=== PATIENT | female | born 1995 | race Caucasian/White ===

== ENCOUNTER 2016-10-22 07:06 | Inpatient (IN) | payer MEDICAID ==
[~2016-10-22] VITALS: Ht 157.5 cm; Wt 70.0 kg
[~2016-10-22 07:06] MED LIST: ALBU18HF INHALATION; GUAI-637 PO; PREN1TAB79 PO
[2016-10-22 07:31] VITALS: Ht 157.5 cm; Wt 70.0 kg
[2016-10-22 07:32] VITALS: BP 126/80; PULSE 75; RESP 18
[2016-10-22] MEDS ORDERED: LACTATED RINGER'S 1,000 ML IV SCH (07:51)
[2016-10-22] MEDS ORDERED: OXYTOCIN 30 UNITS/LR 500 ML IV SCH (08:00)
[2016-10-22] MEDS ORDERED: BUTORPHANOL 2 MG INJ IV PRN (08:00)
[2016-10-22] MEDS ORDERED: AMPICILLIN 2 GM/NS (PMX) 100 ML IV ONE (08:00)
[2016-10-22] MEDS ORDERED: LACTATED RINGER'S 1,000 ML IV PRN (08:00)
[2016-10-22] MEDS ORDERED: METHYLERGONOVINE 0.2 MG INJ IM PRN (08:00)
[2016-10-22] MEDS ORDERED: LIDOCAINE 1% (MPF) 30 ML INJ INJ PRN (08:00)
[2016-10-22] MEDS ORDERED: MISOPROSTOL 200 MCG TAB PR PRN (08:00)
[2016-10-22] MEDS ORDERED: OXYTOCIN 30 UNITS/LR 500 ML IV PRN (08:00)
[2016-10-22] MEDS ORDERED: CARBOPROST 250 MCG INJ IM PRN (08:00)
[2016-10-22] MEDS ORDERED: IBUPROFEN 600 MG TAB PO PRN (08:00)
[2016-10-22 08:37] LABS: BASOPHIL # 0.1 10^3/ul (0.0-0.1); BASOPHILS % 0.6 % (0.0-2.0); HEMATOCRIT 37.4 % (37.0-47.0); HEMOGLOBIN 12.6 g/dl (12.0-16.0); LYMPHOCYTES # 1.6 10^3/ul (0.8-2.9); LYMPHOCYTES % 12.5 % (15.0-51.0); MEAN CORPUSCULAR HEMOGLOBIN 29.2 pg (29.0-33.0); MEAN CORPUSCULAR HGB CONC 33.8 g/dl (32.0-37.0); MEAN CORPUSCULAR VOLUME 86.6 fl (82.0-101.0); MEAN PLATELET VOLUME 10.6 fl (7.4-10.4); MONOCYTE # 0.4 10^3/ul (0.3-0.9); MONOCYTES % 3.2 % (0.0-11.0); NEUTROPHIL # 10.4 10^3/ul (1.6-7.5); NEUTROPHILS % 83.7 % (39.0-77.0); PLATELET COUNT 207 10^3/UL (140-440); RED BLOOD COUNT 4.33 10^6/ul (4.20-5.40); RED CELL DISTRIBUTION WIDTH 13.6 % (11.5-14.5); UNCORRECTED WBC 12.4 10^3/ul (4.8-10.8); WHITE BLOOD COUNT 12.4 10^3/ul (4.8-10.8)
[2016-10-22 08:41] LABS: INR 0.84; PARTIAL THROMBOPLASTIN TIME 25.5 Sec (25.0-35.0); PROTIME 11.5 Sec (12.2-14.2); PT RATIO 0.9
[2016-10-22 08:55] LABS: CONDITION 1
[2016-10-22] MEDS ORDERED: LACTATED RINGER'S 1,000 ML IV ONE (09:16)
[2016-10-22] MEDS ORDERED: ONDANSETRON 4 MG INJ IV ONE (09:30)
[2016-10-22] MEDS ORDERED: morphine 2 MG INJ IV PRN ×2 (09:30)
[2016-10-22] MEDS ORDERED: NALOXONE (0.4 MG/ML) INJ IV PRN (09:30)
[2016-10-22] MEDS ORDERED: PROCHLORPERAZINE 10 MG INJ IV PRN (09:30)
[2016-10-22] MEDS ORDERED: ONDANSETRON 4 MG INJ IV PRN ×2 (09:30→18:00)
[2016-10-22] MEDS ORDERED: FENTAnyl 2MCG/ML-ROPIV 0.2% 100 ML BAG EPI SCH (09:30)
[2016-10-22] MEDS ORDERED: DIPHENHYDRAMINE 50 MG INJ IV PRN (09:30)
[2016-10-22] MEDS ORDERED: CITRIC ACID/NA CITRATE 30 ML CUP PO ONE (09:30)
[2016-10-22] MEDS ORDERED: KETOROLAC 30 MG INJ IV PRN (09:30)
[2016-10-22] MEDS: AMPICILLIN 1 GM/NS (PMX) 50 ML IV SCH ×2 (09:50→16:00)
[2016-10-22] MEDS: OXYTOCIN 30 UNITS/LR 500 ML IV SCH ×3 (14:46→18:20)
--- NOTE | 2016-10-22 15:28 | HP ---
Date/Time of Note Date/Time of Note DATE: 10/22/16 TIME: 15:19 OB - History Hx of Present Free Text/Dictation This is a 21 years old female admitted to [facility] at 38 weeks 4 days in active labor pelvic examination on admission cervix 4 cm dilated 90% effaced vertex at -1 station patient transferred from triage to labor and delivery room for delivery. This patient has been under the care of the [facility] and her was not complicated with gestational diabetes -induced hypertension or any other surgical or medical condition Past history menarche at age 11 regular. Every 27-30 days lasting 4-5 days Allergies denies allergy to any known medication Social habit, denies a smoking or drinking Review of system within normal compatible with term Physical exam 5 feet 2 154 pounds total weight gain during the 22 pounds temperature 98.3 heart rate 69 respiration 18 blood pressure 125/80 Past Family/Social History * Past Medical, Surgical, Family and Obstetric Histories reviewed from chart. OB Admission Exam Vital Signs Vital Signs Vital Signs Date Time Temp Pulse Resp B/P Pulse Ox O2 Delivery O2 Flow Rate FiO2 10/22/16 07:32 97.6 75 18 126/80 Room Air Physical Exam HEENT: WNL Heart: Rhythm Normal Lungs: Clear, Equal Abdomen: WNL Extremities: Normal Reflexes: Normal Cervical Dilatation: 4cm Effacement: 100% Station: -1 Membranes: Intact Heart Rate: 130's Accelerations: Accelerations Present Decelerations: No Decelerations Varibility: Marked Contractions on Admission: < 5 Minutes Apart Intensity: Moderate Last 72 hours Lab Results CBC & BMP 10/22/16 08:10 KAYCEE HERBERT MD Oct 22, 2016 15:28
--- NOTE | 2016-10-22 15:32 | LDN ---
Date/Time of Note Date/Time of Note DATE: 10/22/16 TIME: 15:29 Delivery Summary Normal spontaneous vaginal delivery of a baby girl from KATHY position shoulders delivered with no difficulty followed with the rest of the baby's body Cord clamp after stopped pulsation placenta. Spontaneous expulsion inspected complete patient sustained small first-degree perineal laceration repaired with 3-0 Vicryl estimated blood loss 200 mm Problems: Infant Delivery Information Sex Sex: female Apgars 1 Minute: 9 5 Minute: 9 Suctioning Nose & mouth suctioned at bucky: Yes Delee suction performed: No Umbilical Cord Umbilical cord with: 3 Vessels Cord presentations: no nuchal cord KAYCEE HERBERT MD Oct 22, 2016 15:31
[2016-10-22 17:00] VITALS: BP 109/67; PULSE 72; RESP 18
[2016-10-22 17:49] VITALS: BP 114/71; PULSE 71; RESP 18
[2016-10-22] MEDS ORDERED: ACETAMINOPHEN 325 MG TAB PO PRN (18:00)
[2016-10-22] MEDS: IBUPROFEN 600 MG TAB PO SCH (18:00)
[2016-10-22] MEDS ORDERED: DIBUCAINE 1% 30 GM OINT PR PRN (18:00)
[2016-10-22] MEDS ORDERED: WITCH HAZEL/GLYCERIN PAD PR PRN (18:00)
[2016-10-22] MEDS ORDERED: OXYCODONE/ASPIRIN (4.88/325) TAB PO PRN ×2 (18:00)
[2016-10-22] MEDS ORDERED: BENZOCAINE 20% 56 ML SPRAY TOP PRN (18:00)
[2016-10-22] MEDS ORDERED: ACETAMINOPHEN/CODEINE #3 TAB PO PRN ×2 (18:00)
[2016-10-22] MEDS ORDERED: LANOLIN 7 GM TUBE TOP PRN (18:00)
[2016-10-22 20:00] VITALS: BP 102/62; PULSE 87; RESP 18
[2016-10-22] MEDS: SENNA/DOCUSATE NA (8.6MG/50MG) TAB PO SCH (21:04)
[2016-10-23] VITALS: BP 102/56; PULSE 79; RESP 18
[2016-10-23] MEDS: IBUPROFEN 600 MG TAB PO SCH ×5 (06:26→23:34)
[2016-10-23 08:15] VITALS: BP 117/60; PULSE 73; RESP 18
[2016-10-23] MEDS: SENNA/DOCUSATE NA (8.6MG/50MG) TAB PO SCH ×2 (09:48→21:04)
[2016-10-23 10:23] LABS: HEMATOCRIT 30.6 % (37.0-47.0); HEMOGLOBIN 10.2 g/dl (12.0-16.0); MEAN CORPUSCULAR HEMOGLOBIN 29.5 pg (29.0-33.0); MEAN CORPUSCULAR HGB CONC 33.3 g/dl (32.0-37.0); MEAN CORPUSCULAR VOLUME 88.4 fl (82.0-101.0); RED BLOOD COUNT 3.46 10^6/ul (4.20-5.40); WHITE BLOOD COUNT 11.8 10^3/ul (4.8-10.8)
[2016-10-23 10:24] LABS: LYMPHOCYTES % 21.2 % (15.0-51.0); MEAN PLATELET VOLUME 12.5 fl (7.4-10.4); NEUTROPHILS % 70.7 % (39.0-77.0); PLATELET COUNT 176 10^3/UL (140-440); RED CELL DISTRIBUTION WIDTH 13.8 % (11.5-14.5)
[2016-10-23 10:25] LABS: BASOPHILS % 0.3 % (0.0-2.0); EOSINOPHILS % 0.3 % (0.0-7.0); LYMPHOCYTES # 2.5 10^3/ul (0.8-2.9); MONOCYTE # 0.8 10^3/ul (0.3-0.9); MONOCYTES % 6.9 % (0.0-11.0); NEUTROPHIL # 8.3 10^3/ul (1.6-7.5)
[2016-10-23] MEDS: OXYTOCIN 30 UNITS/LR 500 ML IV SCH (10:34)
--- NOTE | 2016-10-23 10:45 | PN ---
Date/Time of Note Date/Time of Note DATE: 10/23/16 TIME: 10:44 OB Subjective Subjective Subjective Vital sign a stable Afebrile, abdomen soft, uterus firm, lochia normal, extremity normal Laboratory Tests Test 10/23/16 07:20 Basophils # 0.010^3/ul Basophils % 0.3% Eosinophils # 0.010^3/ul Eosinophils % 0.3% Hematocrit 30.6% Hemoglobin 10.2g/dl Lymphocytes # 2.510^3/ul Lymphocytes % 21.2% Mean Corpuscular Hemoglobin 29.5pg Mean Corpuscular Hemoglobin Concent 33.3g/dl Mean Corpuscular Volume 88.4fl Mean Platelet Volume 12.5fl Monocytes # 0.810^3/ul Monocytes % 6.9% Neutrophils # 8.310^3/ul Neutrophils % 70.7% Nucleated Red Blood Cells # 0.010^3/ul Nucleated Red Blood Cells % 0.0/100WBC Platelet Count 45258^3/UL Red Blood Count 3.4610^6/ul Red Cell Distribution Width 13.8% White Blood Count 11.810^3/ul Current Medications Medications (Trade) Dose Ordered Sig/Leonarda Route PRN Reason Start Time Stop Time Status Last Admin Dose Admin Lactated Ringer's 1,000 ml @ 125 mls/hr Q8H IV 10/22/16 07:51 10/22/16 17:41 DC 10/22/16 08:31 Ampicillin 100 ml @ 100 mls/hr ONCE ONCE IV 10/22/16 08:00 10/22/16 08:59 DC 10/22/16 08:31 Ampicillin (Ampicillin 1 Gm/ NS (Pmx)) 50 ml @ 100 mls/hr Q4H IV 10/22/16 12:00 10/22/16 17:42 DC Butorphanol Tartrate (Stadol) 2 mg Q2H PRN IV PAIN 10/22/16 08:00 10/22/16 17:42 DC Lidocaine 30 ml 30 ml ONCE PRN INJ EPISIOTOMY/TEARING 10/22/16 08:00 10/22/16 17:42 DC Oxytocin/Lactated Ringer's 500 ml @ 125 mls/hr ONCE -MAY REPEAT X1 IV 10/22/16 08:00 10/22/16 17:42 DC 10/22/16 15:32 Oxytocin/Lactated Ringer's 500 ml @ 125 mls/hr ONCE IV 10/22/16 08:00 10/22/16 17:42 DC Ibuprofen 600 mg 600 mg ONCE PRN PO Mild Pain (Pain Score 1-3) 10/22/16 08:00 10/22/16 17:42 DC 10/22/16 16:22 Lactated Ringer's 1,000 ml @ 2,000 mls/hr Q30M PRN IV PRE-EPIDURAL BOLUS 10/22/16 08:00 10/22/16 17:42 DC 10/22/16 09:43 Oxytocin/Lactated Ringer's 500 ml @ 0 mls/hr ONCE PRN IV For Hemorrhage Management 10/22/16 08:00 10/22/16 17:42 DC Methylergonovine Maleate (Methergine) 0.2 mg ONCE PRN IM VAGINAL BLEEDING 10/22/16 08:00 10/22/16 17:42 DC Carboprost Tromethamine (Hemabate) 250 mcg ONCE PRN IM VAGINAL BLEEDING 10/22/16 08:00 10/22/16 17:42 DC Misoprostol 1000 mcg 1,000 mcg ONCE PRN NE VAGINAL BLEEDING 10/22/16 08:00 10/22/16 17:42 DC Lactated Ringer's (Lr) 1,000 ml @ 1,000 mls/hr Q1H ONCE IV 10/22/16 09:16 10/22/16 10:15 DC 10/22/16 12:17 Ondansetron HCl (Zofran Inj) 4 mg pre-procedure ONCE IV 10/22/16 09:30 10/22/16 09:31 DC 10/22/16 09:45 Citric Acid/ Sodium Citrate (Bicitra) 30 ml pre-procedure ONCE PO 10/22/16 09:30 10/22/16 09:31 DC 10/22/16 09:44 Naloxone HCl (Narcan) 0.1 mg Q2M PRN IV FOR RESP RATE 8 OR LESS 10/22/16 09:30 10/22/16 17:41 DC Ketorolac Tromethamine (Toradol) 30 mg Q6H PRN IV PAIN 10/22/16 09:30 10/22/16 17:41 DC Morphine Sulfate (morphine) 2 mg Q3H PRN IV PAIN LEVEL 1-5 10/22/16 09:30 10/22/16 17:41 DC Morphine Sulfate (morphine) 4 mg Q3H PRN IV PAIN LEVEL 6-10 10/22/16 09:30 10/22/16 17:41 DC Diphenhydramine HCl (Benadryl) 25 mg Q6H PRN IV ITCHING 10/22/16 09:30 10/22/16 17:41 DC Ondansetron HCl (Zofran Inj) 4 mg Q6H PRN IV NAUSEA AND/OR VOMITING 10/22/16 09:30 10/22/16 17:41 DC Prochlorperazine (Compazine Inj) 10 mg ONCE PRN IV NAUSEA AND/OR VOMITING 10/22/16 09:30 10/22/16 17:41 DC Fentanyl/ Ropivacaine 100 ml 100 ml EPIDURAL INFUSION EPI 10/22/16 09:30 10/22/16 17:41 DC Oxytocin/Lactated Ringer's 500 ml @ 125 mls/hr Q4H IV 10/22/16 17:39 10/23/16 01:38 DC 10/22/16 18:20 Ibuprofen (Motrin) 600 mg Q6 PO 10/22/16 18:00 10/23/16 06:26 Acetaminophen (Tylenol Tab) 650 mg Q4H PRN PO PAIN LEVEL 1-5 10/22/16 18:00 10/22/16 21:04 Acetaminophen/ Codeine Phosphate (Tylenol No.3) 1 tab Q4H PRN PO PAIN LEVEL 1-5 10/22/16 18:00 10/23/16 09:52 Acetaminophen/ Codeine Phosphate (Tylenol No.3) 2 tab Q4H PRN PO PAIN LEVEL 6-10 10/22/16 18:00 Oxycodone/Aspirin (Percodan) 1 tab Q3H PRN PO PAIN LEVEL 1-5 10/22/16 18:00 Oxycodone/Aspirin (Percodan) 2 tab Q3H PRN PO PAIN LEVEL 6-10 10/22/16 18:00 Ondansetron HCl (Zofran Inj) 4 mg Q6H PRN IV NAUSEA AND/OR VOMITING 10/22/16 18:00 Senna/Docusate Sodium (Senokot-S) 1 tab BID PO 10/22/16 21:00 10/23/16 09:48 Witch Shruthi/ Glycerin (Tucks Pads) 1 pad BEDSIDE MEDICATION PRN NE HEMORRHOID/EPISIOTMY PAIN 10/22/16 18:00 10/22/16 18:17 Benzocaine (Dermoplast [place]) 1 spray BEDSIDE MEDICATION PRN TOP HEMORRHOID/EPISIOTMY PAIN 10/22/16 18:00 10/22/16 18:17 Dibucaine (Nupercainal) 1 applic BEDSIDE MEDICATION PRN NE HEMORRHOID/EPISIOTMY PAIN 10/22/16 18:00 Lanolin (Xha-P-Idkpvo) 1 applic BEDSIDE MEDICATION PRN TOP BEDSIDE FOR DOREEN TO NIPPLES 10/22/16 18:00 10/22/16 18:20 Measles/Mumps/ Rubella Vaccine Live (Mmr Ii Vaccine) 0.5 ml ONCE ONCE SC* 10/24/16 09:00 10/24/16 09:01 KAYCEE HERBERT MD Oct 23, 2016 10:45
[2016-10-23 11:40] VITALS: BP 115/62; PULSE 70; RESP 17
[2016-10-23 16:15] VITALS: BP 101/62; PULSE 71; RESP 18
[2016-10-23 20:00] VITALS: BP 109/71; PULSE 80; RESP 20
[2016-10-24 04:26] VITALS: BP 110/61; PULSE 71; RESP 20
[2016-10-24] MEDS: IBUPROFEN 600 MG TAB PO SCH ×2 (05:15→11:47)
[2016-10-24 07:30] VITALS: BP 109/67; PULSE 70; RESP 18
[2016-10-24 08:00] VITALS: BP 109/67; PULSE 70; RESP 18
[2016-10-24] MEDS: SENNA/DOCUSATE NA (8.6MG/50MG) TAB PO SCH (08:58)
[2016-10-24] MEDS ORDERED: MEASLES,MUMPS,RUBELLA VACCINE INJ SC* ONE (09:00)
--- NOTE | 2016-10-24 12:52 | PD.PPDC ---
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
--- NOTE | 2016-10-24 12:57 | DS ---
Date/Time of Note Date/Time of Note DATE: 10/24/16 TIME: 12:53 Obstetrical Discharge Record Final Diagnosis Final Diagnosis: Term delivered Vaginal Delivery Obstetrical Delivery: Spontaneous Condition on Discharge Physical Assessment Last Vitals: Vital sign stable, afebrile abdomen soft, uterus firm, lochia normal, extremity normal, Current Medications Medications (Trade) Dose Ordered Sig/Leonarda Route PRN Reason Start Time Stop Time Status Last Admin Dose Admin Lactated Ringer's 1,000 ml @ 125 mls/hr Q8H IV 10/22/16 07:51 10/22/16 17:41 DC 10/22/16 08:31 Ampicillin 100 ml @ 100 mls/hr ONCE ONCE IV 10/22/16 08:00 10/22/16 08:59 DC 10/22/16 08:31 Ampicillin (Ampicillin 1 Gm/ NS (Pmx)) 50 ml @ 100 mls/hr Q4H IV 10/22/16 12:00 10/22/16 17:42 DC Butorphanol Tartrate (Stadol) 2 mg Q2H PRN IV PAIN 10/22/16 08:00 10/22/16 17:42 DC Lidocaine 30 ml 30 ml ONCE PRN INJ EPISIOTOMY/TEARING 10/22/16 08:00 10/22/16 17:42 DC Oxytocin/Lactated Ringer's 500 ml @ 125 mls/hr ONCE -MAY REPEAT X1 IV 10/22/16 08:00 10/22/16 17:42 DC 10/22/16 15:32 Oxytocin/Lactated Ringer's 500 ml @ 125 mls/hr ONCE IV 10/22/16 08:00 10/22/16 17:42 DC Ibuprofen 600 mg 600 mg ONCE PRN PO Mild Pain (Pain Score 1-3) 10/22/16 08:00 10/22/16 17:42 DC 10/22/16 16:22 Lactated Ringer's 1,000 ml @ 2,000 mls/hr Q30M PRN IV PRE-EPIDURAL BOLUS 10/22/16 08:00 10/22/16 17:42 DC 10/22/16 09:43 Oxytocin/Lactated Ringer's 500 ml @ 0 mls/hr ONCE PRN IV For Hemorrhage Management 10/22/16 08:00 10/22/16 17:42 DC Methylergonovine Maleate (Methergine) 0.2 mg ONCE PRN IM VAGINAL BLEEDING 10/22/16 08:00 10/22/16 17:42 DC Carboprost Tromethamine (Hemabate) 250 mcg ONCE PRN IM VAGINAL BLEEDING 10/22/16 08:00 10/22/16 17:42 DC Misoprostol 1000 mcg 1,000 mcg ONCE PRN AL VAGINAL BLEEDING 10/22/16 08:00 10/22/16 17:42 DC Lactated Ringer's (Lr) 1,000 ml @ 1,000 mls/hr Q1H ONCE IV 10/22/16 09:16 10/22/16 10:15 DC 10/22/16 12:17 Ondansetron HCl (Zofran Inj) 4 mg pre-procedure ONCE IV 10/22/16 09:30 10/22/16 09:31 DC 10/22/16 09:45 Citric Acid/ Sodium Citrate (Bicitra) 30 ml pre-procedure ONCE PO 10/22/16 09:30 10/22/16 09:31 DC 10/22/16 09:44 Naloxone HCl (Narcan) 0.1 mg Q2M PRN IV FOR RESP RATE 8 OR LESS 10/22/16 09:30 10/22/16 17:41 DC Ketorolac Tromethamine (Toradol) 30 mg Q6H PRN IV PAIN 10/22/16 09:30 10/22/16 17:41 DC Morphine Sulfate (morphine) 2 mg Q3H PRN IV PAIN LEVEL 1-5 10/22/16 09:30 10/22/16 17:41 DC Morphine Sulfate (morphine) 4 mg Q3H PRN IV PAIN LEVEL 6-10 10/22/16 09:30 10/22/16 17:41 DC Diphenhydramine HCl (Benadryl) 25 mg Q6H PRN IV ITCHING 10/22/16 09:30 10/22/16 17:41 DC Ondansetron HCl (Zofran Inj) 4 mg Q6H PRN IV NAUSEA AND/OR VOMITING 10/22/16 09:30 10/22/16 17:41 DC Prochlorperazine (Compazine Inj) 10 mg ONCE PRN IV NAUSEA AND/OR VOMITING 10/22/16 09:30 10/22/16 17:41 DC Fentanyl/ Ropivacaine 100 ml 100 ml EPIDURAL INFUSION EPI 10/22/16 09:30 10/22/16 17:41 DC Oxytocin/Lactated Ringer's 500 ml @ 125 mls/hr Q4H IV 10/22/16 17:39 10/23/16 01:38 DC 10/22/16 18:20 Ibuprofen (Motrin) 600 mg Q6 PO 10/22/16 18:00 10/24/16 11:47 Acetaminophen (Tylenol Tab) 650 mg Q4H PRN PO PAIN LEVEL 1-5 10/22/16 18:00 10/22/16 21:04 Acetaminophen/ Codeine Phosphate (Tylenol No.3) 1 tab Q4H PRN PO PAIN LEVEL 1-5 10/22/16 18:00 10/23/16 09:52 Acetaminophen/ Codeine Phosphate (Tylenol No.3) 2 tab Q4H PRN PO PAIN LEVEL 6-10 10/22/16 18:00 Oxycodone/Aspirin (Percodan) 1 tab Q3H PRN PO PAIN LEVEL 1-5 10/22/16 18:00 Oxycodone/Aspirin (Percodan) 2 tab Q3H PRN PO PAIN LEVEL 6-10 10/22/16 18:00 Ondansetron HCl (Zofran Inj) 4 mg Q6H PRN IV NAUSEA AND/OR VOMITING 10/22/16 18:00 Senna/Docusate Sodium (Senokot-S) 1 tab BID PO 10/22/16 21:00 10/24/16 08:58 Witch Shruthi/ Glycerin (Tucks Pads) 1 pad BEDSIDE MEDICATION PRN AL HEMORRHOID/EPISIOTMY PAIN 10/22/16 18:00 10/22/16 18:17 Benzocaine (Dermoplast [place]) 1 spray BEDSIDE MEDICATION PRN TOP HEMORRHOID/EPISIOTMY PAIN 10/22/16 18:00 10/22/16 18:17 Dibucaine (Nupercainal) 1 applic BEDSIDE MEDICATION PRN AL HEMORRHOID/EPISIOTMY PAIN 10/22/16 18:00 Lanolin (Wry-V-Yixagw) 1 applic BEDSIDE MEDICATION PRN TOP BEDSIDE FOR DOREEN TO NIPPLES 10/22/16 18:00 10/22/16 18:20 Measles/Mumps/ Rubella Vaccine Live (Mmr Ii Vaccine) 0.5 ml ONCE ONCE SC* 10/24/16 09:00 10/24/16 09:01 DC Voiding: Yes Bowel Movement: Yes Breast: Filling Fundus: Firm Calf Tenderness: No Patient Condition: Good KAYCEE HERBERT MD Oct 24, 2016 12:57
== END 2016-10-24 16:30 | disposition home or self-care (01) | DRG 775 ==
LOC: OBT 07:06 → L-D 07:07 → OBT 07:48 → L-D 07:49 → PP1 16:46
PROVIDERS: ADMIT Obstetrics & Gynecology; ATTEND Obstetrics & Gynecology
PROC: 10E0XZZ Delivery of Products of Conception, External Approach (ICD-10-PCS; principal; 2016-10-22)
PROC: 0HQ9XZZ Repair Perineum Skin, External Approach (ICD-10-PCS; 2016-10-22)
DX: O70.0 First degree perineal laceration during delivery (principal); Z37.0 Single live birth; Z3A.38 38 weeks gestation of pregnancy
CPT/HCPCS: 62319; 85025; 85610; 85730; 86592; 86900; 86901; 87340; G0463; J0290; J2405; J2590; J3010; J7120